=== PATIENT | female | born 1955 | race Caucasian/White ===

== ENCOUNTER 2024-02-11 02:30 | Inpatient (IN) | payer MEDICARE, OTHER, SELFPAY ==
[2024-02-11] VITALS (16 sets, daily range): BP systolic 153–181; BP diastolic 79–106; PULSE 74–111; RESP 15–22; TEMP 36.6–37.2; O2SAT 93–100; BMI 17.4
--- NOTE | 2024-02-11 02:44 | XR_ITS ---
Examination: PA chest single view Technique: Upright PA chest single view Exam date and time: February 11, 2024 0255 hrs. Indications: Onset chest pain today Findings: Mild prominence left ventricle Moderate hyperexpansion Linear scarring in the right upper lobe and right base as well as left base No lobar pneumonia or pulmonary edema Impression: No lobar pneumonia or pulmonary edema
--- NOTE | 2024-02-11 02:44 | EKG_ITS ---
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
--- NOTE | 2024-02-11 02:45 | PD.EDRME ---
Rapid Medical Screening Exam RME Arrival date/time: 02/11/24 02:30 68 year old female present to ED for c/o of chest pain. I have greeted and performed a focused initial assessment of this patient. A comprehensive ED assessment and evaluation of the patient, analysis of all test results, and completion of the medical decision making process will be conducted by additional ED providers. Chief Complaint: Chest Pain Time Seen by Provider: 02/11/24 02:41 Vital signs: Vital Signs Temperature 97.8 F 02/11/24 02:39 Pulse Rate 111 H 02/11/24 02:39 Respiratory Rate 18 02/11/24 02:39 Blood Pressure 181/99 H 02/11/24 02:39 Pulse Oximetry (%) 99 02/11/24 02:39 Oxygen Delivery Method Room Air 02/11/24 02:39
[2024-02-11] MEDS: ASPIRIN 81 MG CHEW 324 MG PO (03:04)
[2024-02-11 03:40] LABS: Basophils # (Auto) 0.1 Thou/mm3 (0.0-0.2); Basophils % (Auto) 1 % (0-2.5); Eosinophils # (Auto) 0.3 Thou/mm3 (0.0-0.5); Eosinophils % (Auto) 4 % (0-10); Hematocrit 40.5 % (36.0-46.0); Hemoglobin 13.2 g/dL (12.0-16.0); Immature Granulocytes % (Auto) 0 % (0-0); Immature Granulocytes Auto 0.01 Thou/mm3 (0.00-0.00); Lymphocytes % (Auto) 27 % (10-50); Mean Corpuscular HGB Conc 32.6 g/dl (31.0-37.0); Mean Corpuscular Hemoglobin 31.5 pg (25.0-35.0); Mean Corpuscular Volume 97 fL (80-100); Monocytes # (Auto) 0.8 Thou/mm3 (0.0-0.8); Monocytes % (Auto) 10 % (0-12); Neutrophils # (Auto) 4.3 Thou/mm3 (1.8-7.7); Neutrophils % (Auto) 58 % (37-80); Nucleated Red Blood Cell % 0 /100 WBC (0); Platelet Count 370 Thou/mm3 (140-440); RDW Standard Deviation 47.9 fL (36.4-46.3); Red Blood Count 4.19 Miln/mm3 (4.00-5.20); White Blood Count 7.5 Thou/mm3 (3.6-11.0)
[2024-02-11 03:50] LABS: Alanine Aminotransferase 36 U/L (10-49); Albumin, Serum 4.7 gm/dL (3.4-4.8); Albumin/Globulin Ratio 1.7 (1.2-2.2); Alkaline Phosphatase 143 U/L (46-116); Anion Gap 8 (7-16); Aspartate Amino Transferase 63 U/L (0-34); BUN/Creatinine Ratio 20 Ratio (12-20); Bilirubin,Total 0.4 mg/dL (0.3-1.2); Blood Urea Nitrogen 18 mg/dL (9-23); Calcium 9.6 mg/dL (8.3-10.6); Calcium (Corrected) 9.6 mg/dL (8.5-10.1); Carbon Dioxide 26.3 mMol/L (20.0-31.0); Chloride 107 mMol/L (98-107); Creatinine (Component) 0.9 mg/dL (0.6-1.3); Estimated Creatinine Clearance 44.4 mL/min (>60); Globulin 2.7 gm/dL (2.3-3.5); Glucose 101 mg/dL (74-106); Lipase 69 U/L (12-53); Osmolality,Calculated 283 (275-295); Potassium 3.9 mMol/L (3.4-5.1); Sodium 141 mMol/L (136-145); Total Protein 7.4 gm/dL (5.7-8.2); eGFR > 60 See Note
[2024-02-11 03:51] LABS: Troponin I 0.159 ng/mL (0.0-0.045)
[2024-02-11 06:29] LABS: Collection Type, Urine Clean Catch
--- NOTE | 2024-02-11 06:30 | PC.NURSE ---
At this time, pt denies of any chest pain. Pt states she did have chest pain earlier, started at 9PM last night. Discussed plan of care with pt. Pt verbalized understanding. Pt placed on disability specialist. Pt is alert/oriented x3. Respirations are even and unlabored. No s/s of acute distress noted. Call light within reach.
[2024-02-11 06:44] LABS: Troponin I 0.152 ng/mL (0.0-0.045)
[2024-02-11 07:12] LABS: Amphetamine/Methamp Scrn,U Negative (Negative); Barbiturate Screen,Urine Negative (Negative); Benzodiazepines Screen,Urine Negative (Negative); Benzoylecgonine Screen, Ur Negative (Negative); Fentanyl Screen,Urine Negative (Negative); Opiate Screen,Urine Negative (Negative); THC Screen,Urine Negative (Negative)
[2024-02-11 07:18] LABS: Bacteria,Urine Rare; Bilirubin,Urine Negative (Negative); Blood,Urine Trace (Negative); Color,Urine Lt-Yellow (Lt Yel-Yel); Glucose, Urine Negative (Negative); Ketones,Urine Negative (Negative); Leukocyte Esterase,Urine Positive (Negative); Nitrite,Urine Negative (Negative); Protein,Urine Negative (Neg - Trace); RBC,Urine 1 /hpf (0-3); Specific Gravity,Urine 1.008 (1.001-1.035); Squamous Epithelial Cell,Urine 1 /hpf (0-5); Urobilinogen,Urine Negative mg/dL (0.0-1.0); WBC,Urine 96 /hpf (0-5)
[2024-02-11 07:26] LABS: Clarity,Urine Hazy (Clear/Hazy)
--- NOTE | 2024-02-11 08:46 | PD.EDCHEST ---
ED Chest Pain RME/HPI General Chief Complaint: Chest Pain Stated Complaint: CHEST PAIN Time Seen by Provider: 02/11/24 02:41 Arrival date/time: 02/11/24 02:30 RME / HPI RME / HPI narrative: 02/11/24 02:30 68 year old female present to ED for c/o of chest pain. I have greeted and performed a focused initial assessment of this patient. A comprehensive ED assessment and evaluation of the patient, analysis of all test results, and completion of the medical decision making process will be conducted by additional ED providers. DR. SALGUERO MAIN ED EVALUATION: 68 year old female with past medical history significant for atrial fibrillation, hypertension, asthma presents to the Emergency Department with complaint of chest pain onset 1 AM. Pain is described as aching and rated 7/10. Patient denies any of the following: nausea, vomiting, diarrhea, dysuria, or any other symptoms at this time. Related Data Previous Rx's ?Medication ?Instructions ?Recorded ibuprofen 800 mg tablet 800 mg PO TID PRN pain #30 tabs 08/29/20 Allergies Allergy/AdvReac Type Severity Reaction Status Date / Time ampicillin Allergy Verified 08/29/20 18:43 azithromycin Allergy Verified 08/29/20 18:43 Penicillins Allergy Verified 08/29/20 18:43 Sulfa (Sulfonamide Allergy Verified 08/29/20 18:43 Antibiotics) Review of Systems Review of Systems Systems Reviewed: All systems reviewed, normal except as documented Narrative Review of Systems: GEN: No fever, no chills, no weight loss EYES: No discharge, no visual changes, no pain HEENT: No ear pain, no congestion, no sore throat PULM: No shortness of breath, no cough, no congestion CV: + chest pain, no dyspnea on exertion, no palpitations GI: No nausea, no vomiting, no diarrhea, no pain, no constipation : No frequency, no urgency and no dysuria MUSC/SKEL: No joint pain, no back pain SKIN: No rash PSYCH: No hallucinations, no depression HEME/LYMPH: No easy bleeding or bruising tendencies NEURO: No weakness, no headache Past Medical History Past Medical History CARDIAC: Positive Cardiac Disorders, Atrial Fibrillation and Hypertension; Negative Congestive Heart Failure RESPIRATORY: Positive Asthma; Negative Chronic Obstructive Pulmonary Disease (COPD) GENITOURINARY: Negative Renal Disease ENDOCRINE: Negative Diabetes Mellitus Type 1 or Diabetes Mellitus Type 2 Social History SMOKING STATUS: Never smoker SUBSTANCE USE: does not use ALCOHOL: Never ED Exam Narrative Physical exam: GENERAL APPEARANCE: Well hydrated, well nourished, in no acute distress. Anxious. VITALS: All vitals were reviewed and the pulse ox is 100% on room air which is normal according to my interpretation. HEENT: Normocephalic, atramatic, EOMI, EACs are patent. There is no bulge or retraction. Throat without erythema or exudate. Moist oromucosa. No jaundice NECK: Supple, no JVD or bruits. CARDIOVASCULAR: Heart regular without S3-S4 or murmur. No rubs or gallops. LUNGS/CHEST: Clear to auscultation bilaterally. No rales, rhonchi, or wheezing. Normal inspection. ABDOMEN: Soft, nontender, with normal bowel sounds. No pulsatile masses. No rebound, rigidity, or guarding. No incarcerated hernia. Normal inspection and palpation. EXTREMITIES: No edema, clubbing, or cyanosis. Intact CSM. Normal inspection and palpation. SKIN: Warm and dry without rashes. Normal inspection. MUSCULOSKELETAL: No gross deformity, full ROM all extremities. Normal inspection. NEURO: Alert and oriented x3. Cranial nerves II through XII grossly intact. There are no other motor or sensory deficits noted. PSYCHIATRIC: Normal mood and affect. No psychosis. Course Quality Measures none Orders Category Date Time Status Binder Chainstitch Q4H START 00 Care 02/11/24 08:57 Active EKG (ED ONLY) *Do not use* NOW Care 02/11/24 02:44 Completed Saline [Insert IV] NOW Care 02/11/24 08:57 Active EKG (ED Only) Stat Exams 02/11/24 02:44 Draft XR chest 1V portable Stat Exams 02/11/24 02:44 Completed CBC Stat Lab 02/11/24 03:05 Completed Comprehensive Metabolic Panel Stat Lab 02/11/24 03:05 Completed Drug Screen,Urine Stat Lab 02/11/24 06:13 Completed Lipase Stat Lab 02/11/24 03:05 Completed Magnesium Stat Lab 02/11/24 03:05 Completed Troponin I Stat Lab 02/11/24 03:05 Completed Troponin I Stat Lab 02/11/24 05:55 Completed Urinalysis Stat Lab 02/11/24 06:13 Completed Aspirin Chew Med 02/11/24 02:44 Discontinued 324 mg PO X1 ONE Nitroglycerin Oint 2% [Nitro-paste Oint 2%] Med 02/11/24 08:57 Discontinued 1 inch TOP X1 ONE Vital Signs Vital signs: Vital Signs Temperature 97.8 F 02/11/24 02:39 Pulse Rate 111 H 02/11/24 02:39 Respiratory Rate 18 02/11/24 02:39 Blood Pressure 181/99 H 02/11/24 02:39 Pulse Oximetry (%) 99 02/11/24 02:39 Oxygen Delivery Method Room Air 02/11/24 02:39 Chest Pain MDM Narrative MDM Narrative:: I, Jeny Dc, am scribing for and in the presence of Dr. Salguero. CBC is negative. CMP negative. Lipase is slightly elevated at 69. But patient has no symptoms for that. UA is negative. U tox negative. Magnesium negative. Troponin 0.159 repeated 0.152. Chest x-ray interpreted by me: Clear lungs. Heart normal. Mediastinum normal. Normal lungs. Normal bones. No pneumothorax. No CHF. In the emergency department, we are giving the patient aspirin and Nitropaste. 8:55 AM, I spoke to and discussed with , resident of Dr. Simons, hospitalist on-call. She agreed to assess the patient for admission. she wants me to contact the international editorial producer on-call 9 0 3 AM, I spoke to discussed with Dr. Stein, international editorial producer on-call. He agreed to consult on admission. Patient data External records reviewed:: [facility] previous records (Reviewed last ED visit dated 08/29/20, discharged with the following: Closed fracture of distal end of fibula with tibia.) Clinical information provided by:: patient Social determinants that could affect healthcare access:: none Patient has the following chronic illnesses:: Atrial fibrillation, hypertension, asthma How is presenting disease/condition affected by chronic disease/condition?: exacerbated by Evaluation data The following diagnostics were reviewed and interpreted by me:: lab results, radiology exam(s) and EKG tracing(s) Lab and/or radiology exams considered but not ordered:: none Interpretation Summary: See above under MDM narrative. RADIOLOGY Procedure(s): XR chest 1V portable Accession Number(s): [id number] cc: Noé Olmedo MD; Poncho Downing MD; Beni Salguero PA-C~ Examination: PA chest single view Technique: Upright PA chest single view Exam date and time: February 11, 2024 0255 hrs. Indications: Onset chest pain today Findings: Mild prominence left ventricle Moderate hyperexpansion Linear scarring in the right upper lobe and right base as well as left base No lobar pneumonia or pulmonary edema Impression: No lobar pneumonia or pulmonary edema Dictated By: Poncho Downing MD Medications / Prescriptions Medications or Prescriptions considered but not ordered:: none Medication administrations:: Medication Administration History Discontinued Medications Aspirin (Aspirin 81 Mg Chew) 324 mg PO X1 ONE Stop: 02/11/24 02:45 Last Admin: 02/11/24 03:04 Dose: 324 mg Documented By: OA Nitroglycerin (Nitroglycerin Oint 2% 1 Inch Packet) 1 inch TOP X1 ONE Stop: 02/11/24 08:58 see above Consultations Consultation(s) initiated? (list below): Yes Consultation #1 (Physician, Specialty, Details): Discussed test HPI, PMHx, lab, radiology results and/or management with hospitalist. Will admit for further evaluation and management. Accepts patient for admission. Time: 09:00 Diagnosis Most likely diagnosis given after review of the tests above:: Chest pain Elevated troponin Admission Indicated Admission indicated?: indicated Admission Request Was there a request for admission?: Yes Admission Attestation Admission request attestation: Discussed case with [] from Hospitalist service regarding admission. Discussed patients ED course, exam findings, labs, and radiology results. The Hospitalist [agrees,declines] to accept the patient for admission. Disposition Plan Disposition Plan: Admit Discharge Plan Plan Patient Disposition: Admit Acute Care w/in Hospital Disposition Comment: Stable for admit Prescriptions/Referrals Prescriptions/Med Rec: No Action ibuprofen 800 mg tablet 800 mg PO TID PRN (Reason: pain) Qty: 30 0RF Referrals: Noé Olmedo MD [Primary Care Provider] - In 1 week Problem List Clinical Impression: Chest pain, Elevated troponin Patient/Caregiver Discharge Instructions Print Language: Hebrew Stand Alone Forms: Malaika Award Info., Patient Portal Info Letter
[2024-02-11] MEDS: NITROGLYCERIN OINT 2% 1 INCH PACKET TOP (09:02)
--- NOTE | 2024-02-11 09:52 | ECHO_ITS ---
Transthoracic Echo Report Ht (in): 65 Wt (lb): 105 Exam Location: Portable Status: Inpatient Pediatric Registered Nurse: Josee Beck Indications: Procedure Performed: BP: 174 / 98 HR: 92 Rhythm: Sinus Technical Quality: Fair MEASUREMENTS (Male / Female) Normal Values 2D ECHO LV Diastolic Diameter PLAX 4.2 cm 4.2 - 5.9 / 3.9 - 5.3 cm LV Systolic Diameter PLAX 2.9 cm IVS Diastolic Thickness 0.8 cm 0.6 - 1.0 / 0.6 - 0.9 cm LVPW Diastolic Thickness 1.2 cm 0.6 - 1.0 / 0.6 - 0.9 cm LV Relative Wall Thickness 0.5 LVOT Diameter 2.0 cm LA Volume Index 22.7 cm?/m? 16 - 28 cm?/m? Ascending Aorta Diameter 3.2 cm M-MODE Aortic Root Diameter MM 2.7 cm LA Systolic Diameter MM 2.9 cm LA Ao Ratio MM 1.1 AV Cusp Separation MM 1.8 cm DOPPLER AV Peak Velocity 123.0 cm/s AV Peak Gradient 6.1 mmHg AV Mean Gradient 3.0 mmHg AV Velocity Time Integral 23.4 cm LVOT Peak Velocity 89.4 cm/s LVOT Peak Gradient 3.2 mmHg LVOT Velocity Time Integral 21.8 cm LVOT Cardiac Index 4294.9 cm?/min?m? AV Area Cont Eq vti 2.9 cm? AV Area Cont Eq pk 2.3 cm? MV Peak Velocity 90.4 cm/s MV Peak Gradient 3.3 mmHg MV Mean Velocity 54.6 cm/s MV Mean Gradient 1.0 mmHg MV Area PHT 4.2 cm? Mitral E Point Velocity 48.0 cm/s Mitral A Point Velocity 79.5 cm/s Mitral E to A Ratio 0.6 LV E' Lateral Velocity 6.0 cm/s Mitral E to LV E' Lateral Ratio 8.0 LV E' Septal Velocity 6.1 cm/s Mitral E to LV E' Septal Ratio 7.9 FINDINGS Left Ventricle Normal left ventricular size, wall thickness, systolic function with no obvious regional wall motion abnormalities. The ejection fraction is visually estimated at 55-60 %. Right Ventricle The right ventricle is normal in size and systolic function. Left Atrium The left atrium is normal by two-dimensional, color flow and Doppler imaging with no structural abnormalities, no thrombus formation present. Right Atrium The right atrium is normal by two-dimensional imaging, color flow and Doppler imaging with no struct ural abnormalities, no thrombus formation present. Atrial Septum The interatrial septum appears normal with no evidence of a shunt. Aorta The aorta is normal by two-dimensional, color flow and Doppler interrogation. Mitral Valve The mitral valve is normal by two-dimensional, color flow and Doppler interrogation. There is trace mitral valve regurgitation. Aortic Valve The aortic valve is trileaflet. Mild sclerosis without stenosis. There is no significant aortic valv e regurgitation. Tricuspid Valve The tricuspid valve is normal by two-dimensional, color flow and Doppler interrogation. There is tra ce tricuspid valve regurgitation. Pulmonic Valve There is no significant pulmonic valve regurgitation. Vessels The pulmonary artery appears normal. The inferior vena cava pulmonary and hepatic veins appear chuck l. Pericardium The pericardium is normal by two-dimensional imaging. There is no significant pericardial effusion. CONCLUSIONS Normal LV size and function. Estimated EF 55-60% Normal RV size and function Mild AV sclerosis without stenosis. Trace mitral and trace tricuspid regurgitation Tiana Rosario (Electronically Signed) Final Date: 13 February 2024 16:53
[2024-02-11] MEDS: ALBUTEROL INH 8 GM 2 PUFF INH ×3 (10:19→20:02)
[2024-02-11] MEDS: METOPROLOL SUCCINATE XL 25 MG TABCR 50 MG PO ×2 (10:28→20:22)
[2024-02-11 12:24] LABS: Partial Thromboplastin Time 27.9 Seconds (22.0-36.0)
[2024-02-11] MEDS: HEPARIN SOD INJ 5000 UNIT/ML VIAL 2900 UNIT IV (13:29)
[2024-02-11] MEDS: Heparin/D5w 25K 250 ML Ivpb 25,000 UNIT/250 ML BAG 5.715 UNIT IV (13:32)
--- NOTE | 2024-02-11 13:51 | PD.RESHP ---
Documentation for date of: 02/11/24 [facility] History of Present Illness History of present illness: This is a 68-year-old female with PMHx of hypertension, paroxysmal A-fib, CAD, and hypothyroidism presenting to the ED with acute chest pain and pressure that started overnight. Rates the pain a 7/10 in the middle of the chest, started suddenly around 1 AM prior to admission, nonradiating, without reported aggravating or mitigating factors. She [place] 5 [place] and hasn't been taking her METOPROLOL and home meds. She denies headaches, fevers, chills visual changes, loss of consciousness, shortness of breath, GI or urinary symptoms. ED COURSE: Afebrile, BP 181/91, HR 111, satting 99% on room air. Troponin 0.159. EKG showed sinus rhythm, nonspecific ST changes. BC and CMP otherwise normal. UA negative for UTI. CXR without pneumonia or pulmonary edema. Pain improved with NITROGLYCERIN in ED. Cardiology was consulted who recommended admission for ACS workup. PMHx: HTN, paroxysmal A-fib, CAD, hypothyroidism PSHx: None MEDS: ELIQUIS, METOPROLOL, LEVOTHYROXINE ALLERGIES: AMPICILLIN, AZITHROMYCIN, PENICILLIN, SULFA DRUGS SH: Denies alcohol, tobacco or drug use Exam Vital Signs Temp Pulse Resp BP Pulse Ox O2 Del Method 98.0 F 83 16 155/79 H 93 L Room Air 02/11/24 12:00 02/11/24 12:00 02/11/24 12:00 02/11/24 12:00 02/11/24 12:00 02/11/24 12:00 Narrative Exam GENERAL: Normal appearing elderly female without acute distress HEENT: NCAT.?[place]. Oral mucosa is moist. Patent Nares NECK: Supple, nontender, no thyromegaly, no meningismus, no JVD, no step offs CHEST: Symmetrical, atraumatic, and with equal expansion, Nontender on palpation no deformity and no crepitus. CARDIOVASCULAR: RRR, no m/g/r LUNGS: CTAB, no w/r/r. Symmetrical chest rise. No intercostal subcostal retraction. ABDOMEN: Soft, flat, nontender. No guarding/rebound tenderness/masses. +BS EXTREMITIES: Nontender.? No edema/cyanosis.?Moves all 4 extremities well, with full ROM and good CSM. SKIN: Warm and dry, no jaundice/rashes. MSK: No lumbar or midline, no CVA, no paraspinal muscle spasm or tenderness. NEURO: RUTLEDGE x4, CN II-XII grossly intact.?No focal neurologic deficits. PSYCHIATRIC: Normal mood and affect, cooperative, no SI or HI or hallucinations. Results: Labs 02/11/24 03:05 02/11/24 03:05 Labs: Short CBC 02/11/24 Range/Units 03:05 WBC 7.5 (3.6-11.0) Thou/mm3 Hgb 13.2 (12.0-16.0) g/dL Hct 40.5 (36.0-46.0) % Plt Count 370 (140-440) Thou/mm3 BMP 02/11/24 03:05 Sodium 141 Potassium 3.9 Chloride 107 Carbon Dioxide 26.3 BUN 18 Creatinine 0.9 Glucose 101 Calcium 9.6 Cardiac Enzymes 02/11/24 02/11/24 Range/Units 03:05 05:55 Troponin I 0.159 H* 0.152 H* (0.0-0.045) ng/mL Liver Function 02/11/24 Range/Units 03:05 Total Bilirubin 0.4 (0.3-1.2) mg/dL AST 63 H (0-34) U/L ALT 36 (10-49) U/L Alkaline Phosphatase 143 H (46-116) U/L Albumin 4.7 (3.4-4.8) gm/dL Urine 02/11/24 Range/Units 06:13 Urine Color Lt-Yellow (Lt Yel-Yel) Urine Clarity Hazy (Clear/Hazy) Urine pH 6.0 (5.0-7.0) Ur Specific [place] 1.008 (1.001-1.035) Urine Protein Negative (Neg - Trace) Urine Glucose (UA) Negative (Negative) Quality Measures Quality Measures none Advance care planning discussed with:: patient Medications Home Medications and Allergies Home Medications ?Medication ?Instructions ?Recorded ?Confirmed ?Type apixaban 2.5 mg tablet (Eliquis) mg PO BID 02/11/24 02/11/24 History levothyroxine 50 mcg tablet mcg PO QDAY 02/11/24 History metoprolol succinate 25 mg mg PO BID 02/11/24 History tablet,extended release 24 hr Allergies Allergy/AdvReac Type Severity Reaction Status Date / Time ampicillin Allergy Verified 08/29/20 18:43 azithromycin Allergy Verified 08/29/20 18:43 Penicillins Allergy Verified 08/29/20 18:43 Sulfa (Sulfonamide Allergy Verified 08/29/20 18:43 Antibiotics) Visit Medications Acetaminophen (Acetaminophen 325 Mg Tablet) 650 mg PO Q6H PRN PRN Reason: Fever >101.5 Stop: 03/12/24 09:50 Acetaminophen (Acetaminophen 325 Mg Tablet) 650 mg PO Q6H PRN PRN Reason: PAIN SCALE 1-3 (mild Stop: 03/12/24 09:50 Hydrocodone Bitart/Acetaminophen (Hydrocodone/Apap 5/325 Tablet) 1 tab PO Q8HR PRN PRN Reason: PAIN Stop: 02/16/24 09:54 Albuterol (Albuterol Inh 8 Gm) 2 puff INH Q4HR PRN PRN Reason: SHORTNESS OF BREATH OR WHEEZE Stop: 03/12/24 09:54 Last Admin: 02/11/24 10:19 Dose: 2 puff Aspirin (Aspirin Ec 81 Mg Tabec) 81 mg PO QDAY SABI Stop: 03/13/24 08:59 Atorvastatin Calcium (Atorvastatin Calcium 20 Mg Tablet) 80 mg PO HS [facility] Stop: 03/12/24 20:59 Heparin Sodium/Dextrose (Heparin In D5w Ivpb) 25,000 unit in 250 mls @ 5.715 mls/hr IV .Q24H SABI; Protocol Stop: 02/25/24 12:44 Last Admin: 02/11/24 13:32 Dose: 12 units/kg/hr, 5.715 mls/hr Levothyroxine Sodium (Levothyroxine Sodium 25 Mcg Tablet) 50 mcg PO ACBR SABI Stop: 03/13/24 05:59 Losartan Potassium (Losartan Potassium 25 Mg Tablet) 25 mg PO QDAY SABI Stop: 03/13/24 08:59 Metoprolol Succinate (Metoprolol Succinate Xl 25 Mg Tabcr) 50 mg PO BID SABI Stop: 03/12/24 20:59 Ondansetron HCl (Ondansetron Inj 2 Mg/Ml Inj 2 Ml) 4 mg IV Q6H PRN; Protocol PRN Reason: NAUSEA OR VOMITING Stop: 03/12/24 09:50 Discontinued Medications Aspirin (Aspirin 81 Mg Chew) 324 mg PO X1 ONE Stop: 02/11/24 02:45 Last Admin: 02/11/24 03:04 Dose: 324 mg Enoxaparin Sodium (Enoxaparin Sod Inj 40 Mg/0.4 Ml Syringe) 40 mg SC QDAY [facility] Stop: 02/26/24 08:59 Heparin Sodium (Porcine) (Heparin Sod Inj 5000 Unit/Ml Vial) 2,900 unit IV X1 ONE; Protocol Stop: 02/11/24 13:10 Last Admin: 02/11/24 13:29 Dose: 2,900 unit Metoprolol Succinate (Metoprolol Succinate Xl 25 Mg Tabcr) 50 mg PO QDAY [facility] Stop: 03/12/24 09:54 Last Admin: 02/11/24 10:28 Dose: 50 mg Nitroglycerin (Nitroglycerin Oint 2% 1 Inch Packet) 1 inch TOP X1 ONE Stop: 02/11/24 08:58 Last Admin: 02/11/24 09:02 Dose: 1 inch Assessment & Plan Plan In summary: 68-year-old female with HTN, paroxysmal A-fib, CAD, and hypothyroidism, presenting with acute chest pain, admitted for ACS workup. ? Acute coronary syndrome Acute non-STEMI Hx of CAD HTN Paroxysmal A-fib Presenting with acute chest pain that started 1 AM prior to admission. States chest pain is more like a chest pressure, relieved after NITROGLYCERIN in the ED. Possibly related to patient not taking her METOPROLOL for 5 days. Troponin elevated on admission. EKG shows sinus rhythm without acute ST changes. Cardiology was consulted who recommended admission to rule out ACS, and for possible cath. BP 1 6781, HR 81. Currently asymptomatic without chest pain or shortness of breath. ? Started HEPARIN drip ? Started ASPIRIN 81 mg daily ? Started ATORVASTATIN 80 mg daily ? Started on TOPROL 50 mg BID ? Started LOSARTAN 25 mg daily ? Maintain K greater than 4, mag greater than 2 ? Pain control ? Pending A1c, TSH, lipid panel ? Pending further recommendations from cardiology Hypothyroidism History of hypothyroidism. ? Resumed home LEVOTHYROXINE 50 mg AC BR ? Pending TSH Health maintenance Diet: Cardiac GI prophylaxis: PROTONIX DVT prophylaxis: HEPARIN Antibiotics: Not indicated CODE STATUS: Full code Disposition: Pending cardiology recommendation, possible cath Patient case was discussed with attending, Dr. Simons and senior resident Dr. Álvarez. Debi Sutton DO PGYI Attending Provider Attestation/Addendum I have examined the patient, reviewed labs and imaging findings, discussed the case with the resident(s), and reviewed entered orders. I agree with the plan of care as outlined in this note, with these additional summaries/recommendations: # NSTEMI type I Presented with chest pressure, duration greater than 2 minutes, and radiating up left arm. Given typical features this is concerning for NSTEMI type I from ACS or plaque rupture LISA score: 3 points indicating 13% risk at 14 days of all cause mortality Annabella score: 101 points indicating 4% probability of from admission to 6 months Troponin elevated to 0.159 EKG demonstrated sinus rhythm with nonspecific ST changes Workup: Troponin until downtrending, serial EKGs, TTE CAD risk factor screening: A1c, lipid panel, TSH, U tox Treatment: Titrate O2 as needed for symptoms Antiplatelet: Status post aspirin loading dose, continue aspirin 81 mg p.o. daily Anticoagulation: Heparin gtt. Plaque stabilization: Atorvastatin 80 mg p.o. at bedtime Cardiac remodeling prevention: Continue home metoprolol succinate XL 50 mg p.o. twice daily and losartan 25 mg p.o. daily Consider IV morphine or nitroglycerin as needed for chest pain Cardiology following with plans for cardiac catheterization either Saturday 02/11 or Sunday 02/12 # Chronic atrial fibrillation Continue home metoprolol Currently rate controlled Hold home Eliquis in anticipation of cardiac catheterization # Hypothyroidism Continue levothyroxine [address] Simons
--- NOTE | 2024-02-11 14:09 | ESCONSULT_ITS ---
RE: AISHWARYA ARAIZA : 1955 DATE OF CONSULTATION: 02/11/2024 CONSULTING PHYSICIAN: Misha Simons MD REASON FOR CONSULTATION: Evaluation of chest pain, acute myocardial infarction, NSTEMI and acute coronary syndrome. CHIEF COMPLAINT: Chest pressure. HISTORY OF PRESENT ILLNESS: The patient is a 68-year-old pleasant lady with a past medical history of hypertension, paroxysmal atrial fibrillation on metoprolol and Eliquis as well as blood pressure medications, doing well until recently. The patient normally lives in [place], [place], followed by Dr. Mack, information technology coordinator and Dr. Zamorano, rating specialist, has a cabin in [place]. She went to [place] about 4 days ago and forgot her medication. She has not been taking her medication for the last 3 days. This morning around 1 a.m. she woke up with severe substantial chest heaviness like someone sitting on her chest. It lasted for several hours. She came to the emergency room after given nitroglycerin and Nitropaste, pain slowly went away. She is feeling better. EKG showed normal sinus rhythm, nonspecific ST abnormality. Cardiac enzymes, troponin at 0.152. The patient was admitted to the hospital and was diagnosed with acute coronary syndrome and non-ST segment elevation myocardial infarction. The patient remains in sinus rhythm, tachycardia 94 beats per minute. ALLERGIES: NONE. MEDICATIONS: Medications at home. She did not bring her medication, but she is apparently on metoprolol 50 mg twice daily and also on blood pressure medication, possibly lisinopril and losartan, levothyroxine and Eliquis 5 mg b.i.d. PAST MEDICAL HISTORY: Hypertension, hypothyroidism, paroxysmal atrial fibrillation. SOCIAL HISTORY: , lives with . Does not smoke or drink alcoholic beverages. FAMILY HISTORY: Father had a heart attack and 3 siblings have had a cardiovascular problem and CAD. REVIEW OF SYSTEMS: CARDIOVASCULAR: Chest heaviness, mild shortness of breath. GASTROINTESTINAL: No nausea or vomiting. GENITOURINARY: No frequency or dysuria. PHYSICAL EXAMINATION: GENERAL: Pleasant lady, alert, awake, in no acute distress. VITAL SIGNS: Blood pressure 159/92, pulse 98, respirations 16, temperature normal. HEENT: Head is atraumatic and normocephalic. Eyes normal. ENT normal. NECK: Supple. No JVD, carotid pulse felt but no bruits. CHEST: Symmetrical. LUNGS: Clear. HEART: S1, S2 regular. No gallops. ABDOMEN: Thin and soft. EXTREMITIES: No edema. GENITOURINARY AND RECTAL: Not performed. NEUROLOGIC: Peripheral pulses 3+ bilaterally. COATING TECHNICIAN: Alert and oriented x3. No focal deficits. DIAGNOSTIC DATA: Electrocardiogram showed normal sinus rhythm and nonspecific ST changes. ASSESSMENT: 1. Acute coronary syndrome, acute non-ST segment elevation myocardial infarction, troponin elevation. 2. Hypertension. 3. Paroxysmal atrial fibrillation. 4. Hypothyroidism. RECOMMENDATIONS: I would recommend aspirin and heparin for now and possibly require coronary angiogram and cardiac catheterization. We will get a cardiac echo Doppler study as well tomorrow and schedule for angiogram either tomorrow afternoon if possible or Monday. Thanks for referring this patient for cardiovascular evaluation. We will be glad to follow the patient with you. DT: 11:12:42 TT: 14:07:00 Ref: [id number] - TID: [id number]
[2024-02-11] MEDS: HYDROcodone/APAP 5/325 TABLET 1 TAB PO (16:13)
--- NOTE | 2024-02-11 17:56 | PC.NURSE ---
pt unable to provide home medication list at this time, to come here tomorrow and bring list
[2024-02-11 20:17] LABS: Partial Thromboplastin Time 30.3 Seconds (22.0-36.0)
[2024-02-11] MEDS: ATORVASTATIN CALCIUM 20 MG TABLET 80 MG PO (20:22)
[2024-02-11] MEDS: HEPARIN SOD INJ 5000 UNIT/ML VIAL 2900 UNIT IVP (20:46)
[2024-02-11] MEDS: ACETAMINOPHEN 325 MG TABLET 650 MG PO (23:23)
[2024-02-12] VITALS (20 sets, daily range): BP systolic 122–192; BP diastolic 59–100; PULSE 73–92; RESP 13–20; TEMP 36.1–37.3; O2SAT 93–97; BMI 17.4
[2024-02-12] MEDS: ALBUTEROL INH 8 GM 2 PUFF INH ×2 (00:09→13:16)
--- NOTE | 2024-02-12 00:32 | PC.NURSE ---
Dr. Hope notified of patient requesting pain medication for headache and made aware that Tylenol given and helped a little but patient requesting something else.
[2024-02-12 03:27] LABS: Basophils # (Auto) 0.1 Thou/mm3 (0.0-0.2); Basophils % (Auto) 2 % (0-2.5); Eosinophils # (Auto) 0.4 Thou/mm3 (0.0-0.5); Eosinophils % (Auto) 5 % (0-10); Hematocrit 35.6 % (36.0-46.0); Hemoglobin 11.5 g/dL (12.0-16.0); Immature Granulocytes % (Auto) 0 % (0-0); Immature Granulocytes Auto 0.02 Thou/mm3 (0.00-0.00); Lymphocytes # (Auto) 2.7 Thou/mm3 (1.0-4.8); Lymphocytes % (Auto) 37 % (10-50); Mean Corpuscular HGB Conc 32.3 g/dl (31.0-37.0); Mean Corpuscular Hemoglobin 31.2 pg (25.0-35.0); Mean Corpuscular Volume 97 fL (80-100); Monocytes # (Auto) 0.6 Thou/mm3 (0.0-0.8); Monocytes % (Auto) 9 % (0-12); Neutrophils # (Auto) 3.4 Thou/mm3 (1.8-7.7); Neutrophils % (Auto) 47 % (37-80); Nucleated Red Blood Cell % 0 /100 WBC (0); Platelet Count 317 Thou/mm3 (140-440); RDW Standard Deviation 46.7 fL (36.4-46.3); Red Blood Count 3.69 Miln/mm3 (4.00-5.20); White Blood Count 7.2 Thou/mm3 (3.6-11.0)
[2024-02-12 03:52] LABS: Alanine Aminotransferase 22 U/L (10-49); Albumin, Serum 3.6 gm/dL (3.4-4.8); Albumin/Globulin Ratio 1.4 (1.2-2.2); Alkaline Phosphatase 97 U/L (46-116); Anion Gap 8 (7-16); Aspartate Amino Transferase 25 U/L (0-34); BUN/Creatinine Ratio 18 Ratio (12-20); Bilirubin,Total 0.6 mg/dL (0.3-1.2); Blood Urea Nitrogen 16 mg/dL (9-23); Calcium 9.3 mg/dL (8.3-10.6); Calcium (Corrected) 9.6 mg/dL (8.5-10.1); Carbon Dioxide 25.4 mMol/L (20.0-31.0); Cardiac Risk Estimate 1.8 RATIO (3.7-5.6); Chloride 109 mMol/L (98-107); Cholesterol 144 mg/dL (132-200); Creatinine (Component) 0.9 mg/dL (0.6-1.3); Estimated Creatinine Clearance 44.4 mL/min (>60); Globulin 2.5 gm/dL (2.3-3.5); Glucose 104 mg/dL (74-106); HDL Cholesterol 81 mg/dL (40-60); LDL Cholesterol,Calculated 51 mg/dL (0-130); Osmolality,Calculated 284 (275-295); Phosphorous 5.4 mg/dL (2.4-5.1); Potassium 4.1 mMol/L (3.4-5.1); Sodium 142 mMol/L (136-145); Thyroid Stimulating Hormone 3.63 uIU/mL (0.55-4.78); Total Protein 6.1 gm/dL (5.7-8.2); Triglycerides 61 mg/dL (30-150); eGFR > 60 See Note
[2024-02-12 03:56] LABS: Partial Thromboplastin Time 68.7 Seconds (22.0-36.0)
[2024-02-12 04:04] LABS: Glucose Estimated Average 100 mg/dL (80-131); Hemoglobin A1C 5.1 % Hgb (4.8-6.0)
[2024-02-12] MEDS: ACETAMINOPHEN 325 MG TABLET 650 MG PO (04:09)
--- NOTE | 2024-02-12 04:32 | PC.NURSE ---
Dr. Hope notified regarding patient's elevated blood pressure. New orders received.
[2024-02-12] MEDS: LOSARTAN POTASSIUM 25 MG TABLET (05:06)
[2024-02-12] MEDS: LEVOTHYROXINE SODIUM 25 MCG TABLET 50 MCG PO (05:06)
[2024-02-12] MEDS: ASPIRIN EC 81 MG TABEC PO (09:27)
[2024-02-12] MEDS: METOPROLOL SUCCINATE XL 25 MG TABCR 50 MG PO ×2 (09:27→18:45)
--- NOTE | 2024-02-12 10:37 | PC.SS ---
Patient is alert/oriented. Patient resides at home with spouse. She is here visiting. Patient was at their cabin in [place]. D/c plan is to return home in [place]. Patient was admitted for chest pain. Baseline is independent with ADL's. She uses a cane as needed. She has a fractured back that she recently had surgery in of last year. Spouse provides transportation assistance. Patient follows with GI and Cardiology for o/p treatment. Patient pending cardiac cath. Her p.c.p. is Dr. Olmedo in [place]. Last appt. was in January. Patient states her is her alt medical decision maker.
[2024-02-12 11:37] LABS: Partial Thromboplastin Time 57.2 Seconds (22.0-36.0)
[2024-02-12] MEDS: amLODIPine BESYLATE 5 MG TABLET PO (12:12)
[2024-02-12] MEDS: Heparin/D5w 25K 250 ML Ivpb 25,000 UNIT/250 ML BAG 7.62 UNIT IV (12:29)
--- NOTE | 2024-02-12 13:16 | PC.NURSE ---
stopped heparin iv per order
[2024-02-12] MEDS: SODIUM CHLORIDE 0.45 % 500 ML 100 ML IV (14:00)
[2024-02-12 14:56] LABS: INR 1.1 (0.9-1.3); Prothrombin Time 11.8 Seconds (9.0-12.2)
--- NOTE | 2024-02-12 14:56 | ESPR_ITS ---
<Statement entered by Fredi Álvarez MD - 02/12/24 19:18> Patient underwent cath by Dr. Mcintosh, found to have clean coronaries and patient was discharged later on the same day. I discussed with and supervised my co-resident involved in the care of this patient. I agree with the assessment and plan as documented above. Fredi Álvarez,PGY-3 Disclaimer: Despite multiple revisions, due to the dictation software being used, the document below may not be free of grammatical errors including phonetic/typographic errors. However, this does not deter from our commitment to providing health care in the patient's best interest in mind. Documentation for date of: 02/12/24 Subjective Subjective Interval history: No acute overnight events. Patient appears comfortable. She was n.p.o. for possible cath today. Denies fever, chills, headaches, chest pain, sob, cough, GI or urinary symptoms. Exam Vital Signs Temp Pulse Resp BP Pulse Ox O2 Del Method 97.4 F 87 20 192/94 H 97 Room Air 02/12/24 13:47 02/12/24 13:47 02/12/24 13:47 02/12/24 13:47 02/12/24 13:47 02/12/24 13:47 Narrative Exam GENERAL: Normal appearing elderly female without acute distress HEENT: NCAT.?YOJANA. Oral mucosa is moist. Patent Nares NECK: Supple, nontender, no thyromegaly, no meningismus, no JVD, no step offs CHEST: Symmetrical, atraumatic, and with equal expansion, Nontender on palpation no deformity and no crepitus. CARDIOVASCULAR: RRR, no m/g/r LUNGS: CTAB, no w/r/r. Symmetrical chest rise. No intercostal subcostal retraction. ABDOMEN: Soft, flat, nontender. No guarding/rebound tenderness/masses. +BS EXTREMITIES: Nontender.? No edema/cyanosis.?Moves all 4 extremities well, with full ROM and good CSM. SKIN: Warm and dry, no jaundice/rashes. MSK: No lumbar or midline, no CVA, no paraspinal muscle spasm or tenderness. NEURO: RUTLEDGE x4, CN II-XII grossly intact.?No focal neurologic deficits. PSYCHIATRIC: Normal mood and affect, cooperative, no SI or HI or hallucinations. Objective Labs 02/12/24 03:03 02/12/24 03:03 Labs: Laboratory Results - last 24 hr 02/11/24 02/12/24 02/12/24 19:42 03:03 10:51 WBC 7.2 RBC 3.69 L Hgb 11.5 L Hct 35.6 L MCV 97 MCH 31.2 MCHC 32.3 RDW Std Deviation 46.7 H Plt Count 317 D Neut % (Auto) 47 Lymph % (Auto) 37 [place] % (Auto) 9 Eos % (Auto) 5 Baso % (Auto) 2 Neut # (Auto) 3.4 Lymph # (Auto) 2.7 [place] # (Auto) 0.6 Eos # (Auto) 0.4 Baso # (Auto) 0.1 Immature Gran # (Auto) 0.02 H Absolute Nucleated RBC 0.00 Immature Gran % 0 Nucleated RBC % 0 PT 11.8 INR 1.1 APTT 30.3 68.7 H D 57.2 H D Sodium 142 Potassium 4.1 Chloride 109 H Carbon Dioxide 25.4 Anion Gap 8 BUN 16 Creatinine 0.9 Estim Creat Clear Calc 44.4 L eGFR > 60 BUN/Creatinine Ratio [address] Glu mg/dL 100 Hemoglobin A1c 5.1 Calculated Osmolality 284 Calcium 9.3 Corrected Calcium 9.6 Phosphorus 5.4 H Magnesium 2.0 Total Bilirubin 0.6 AST 25 ALT 22 Alkaline Phosphatase 97 D Total Protein 6.1 Albumin 3.6 D Globulin 2.5 Albumin/Globulin Ratio 1.4 Triglycerides 61 Cholesterol 144 LDL Cholesterol, Calc 51 HDL Cholesterol 81 H Cholesterol/HDL Ratio 1.8 L TSH 3.63 Quality Measures Quality Measures none Advance care planning discussed with:: patient Assessment & Plan Assessment Current Active Medications: Generic Name Dose Route Start Last Admin Trade Name Freq PRN Reason Stop Dose Admin Acetaminophen 650 mg 02/11/24 09:51 Acetaminophen 325 Mg Tablet PO 03/12/24 09:50 Q6H PRN Fever >101.5 Acetaminophen 650 mg 02/11/24 09:51 02/12/24 04:09 Acetaminophen 325 Mg Tablet PO 03/12/24 09:50 650 mg Q6H PRN Administration PAIN SCALE 1-3 (mild Hydrocodone Bitart/Acetaminophen 1 tab 02/11/24 09:55 02/11/24 16:13 Hydrocodone/Apap 5/325 Tablet PO 02/16/24 09:54 1 tab Q8HR PRN Administration PAIN Protocol Albuterol 2 puff 02/11/24 09:55 02/12/24 13:16 Albuterol Inh 8 Gm INH 03/12/24 09:54 2 puff Q4HR PRN Administration SHORTNESS OF BREATH OR WHEEZE Amlodipine Besylate 5 mg 02/12/24 10:45 02/12/24 12:12 Amlodipine Besylate 5 Mg Tablet PO 03/13/24 10:44 5 mg QDAY SABI Administration Aspirin 81 mg 02/12/24 09:00 02/12/24 09:27 Aspirin Ec 81 Mg Tabec PO 03/13/24 08:59 81 mg QDAY SABI Administration Atorvastatin Calcium 80 mg 02/11/24 21:00 02/11/24 20:22 Atorvastatin Calcium 20 Mg Tablet PO 03/12/24 20:59 80 mg HS SABI Administration Sodium Chloride 500 mls @ 100 mls/hr 02/12/24 13:15 02/12/24 14:00 Ns 0.45% IV 03/13/24 13:14 100 mls/hr .Q5H SABI Administration Levothyroxine Sodium 50 mcg 02/12/24 06:00 02/12/24 05:06 Levothyroxine Sodium 25 Mcg Tablet PO 03/13/24 05:59 50 mcg ACBR SABI Administration Losartan Potassium 25 mg 02/12/24 09:00 02/12/24 09:18 Losartan Potassium 25 Mg Tablet PO 03/13/24 08:59 Not Given QDAY SABI Metoprolol Succinate 50 mg 02/11/24 21:00 02/12/24 09:27 Metoprolol Succinate Xl 25 Mg Tabcr PO 03/12/24 20:59 50 mg BID SABI Administration Ondansetron HCl 4 mg 02/11/24 09:51 Ondansetron Inj 2 Mg/Ml Inj 2 Ml IV 03/12/24 09:50 Q6H PRN NAUSEA OR VOMITING Protocol Plan In summary: 68-year-old female with HTN, paroxysmal A-fib, CAD, and hypothyroidism, presenting with acute chest pain, admitted for ACS workup. ? Acute coronary syndrome Acute non-STEMI Hx of CAD HTN Paroxysmal A-fib Presenting with acute chest pain that started 1 AM prior to admission. States chest pain is more like a chest pressure, relieved after NITROGLYCERIN in the ED. Possibly related to patient not taking her METOPROLOL for 5 days. Troponin elevated on admission. EKG shows sinus rhythm without acute ST changes. Cardiology was consulted who recommended admission to rule out ACS, and for possible cath. BP 1 6781, HR 81. Currently asymptomatic without chest pain or shortness of breath. Cardiology following. Recommendations as below. ? Continue HEPARIN drip ? Continue ASPIRIN 81 mg daily ? Continue ATORVASTATIN 80 mg daily ? Continue METOPROLOL 50 mg BID ? Holding LOSARTAN 25 mg daily for possible cath today ? Maintain K greater than 4, mag greater than 2 ? Pain control ? Pending A1c, TSH, lipid panel ? Pending further recommendations from cardiology ? Possible cath with cardiology today Hypothyroidism History of hypothyroidism. ? Resumed home LEVOTHYROXINE 50 mg AC BR ? Pending TSH Health maintenance Diet: Cardiac GI prophylaxis: PROTONIX DVT prophylaxis: HEPARIN Antibiotics: Not indicated CODE STATUS: Full code Disposition: Pending cardiology recommendation, possible cath Patient case was discussed with attending, Ramez Barcenas MD and senior residents Dr. Álvarez and Dr. Joyner. Debi Sutton DO PGYI Attending Provider Attestation/Addendum I reviewed labs, imaging, EKG, home medications and prior available records. Face to face evaluation was performed by me. I have personally examined the patient and discussed assessment and plan with the IM team. I reviewed the resident note and agree with the plan with exceptions as below. Non-STEMI Nonobstructive CAD Atrial fibrillation with controlled ventricular rhythm Hypothyroidism Uncontrolled hypertension Status post cardiac catheterization that showed nonobstructive CAD. Continue aspirin. Follow-up with cardiology as outpatient Amlodipine and losartan in addition to metoprolol for the HTN Continue home levothyroxine Continue metoprolol and Eliquis for the A-fib Time spent is 40 minutes. More than 50% of the time was spent on patient education and coordination of care.
--- NOTE | 2024-02-12 16:51 | PC.NURSE ---
Report given to LISA Tripp. Dressing clean, dry, and intact. Right wrist is soft, flat, and nontender. No signs of bleeding or hematoma.
--- NOTE | 2024-02-12 17:01 | ESDS_ITS ---
<Statement entered by Fredi Álvarez MD - 02/12/24 19:09> I discussed with and supervised my co-resident involved in the care of this patient. I agree with the assessment and plan as documented above. Fredi Álvarez,PGY-3 Disclaimer: Despite multiple revisions, due to the dictation software being used, the document below may not be free of grammatical errors including phonetic/typographic errors. However, this does not deter from our commitment to providing health care in the patient's best interest in mind. Planned Discharge Date 02/12/24 DS: Providers Provider Date of admission: 02/11/24 09:51 Primary care physician: Noé Olmedo MD Admitting Provider: Misha Simons MD Attending Provider on Admission: Misha Simons MD Consults: 02/11/24 14:54 Consult to Cardiology Routine Comment: Consulting Provider: Lesly Mcintosh 02/11/24 16:13 Referral [place] Routine Comment: Referral Registered Dietitian Routine Comment: Attending Provider on DC: Ramez Barcenas MD Discharging Provider: Ramez Barcenas MD DS: Diagnosis Problem List Completed Was Problem List Reviewed/Reconciled?: Yes Hospital Course Hospital Course Hospital course: This is a 68-year-old female PMHx of HTN, proximal A-fib, CAD, and hypothyroidism who presented with acute chest pain, after she stopped taking her home medications for 5 days. She was admitted for acute coronary syndrome, and non-STEMI. He underwent Ladle Operator with cardiology which showed all arteries are clear without signs of stenosis.. No cardiac interventions were done at this time. Cardiology recommended discharge home and resume home medications and outpatient follow-up. PATIENT INSTRUCTIONS: Follow-up with PCP within 1-2 weeks of discharge. Follow-up with cardiology within 1 week of discharge. Return to Emergency Room if symptoms persist, worsen, or new symptoms develop. Continue taking medications as prescribed below: ? ASPIRIN 81 mg daily - Amlodipine 5 mg ? METOPROLOL 25 mg BID ? LOSARTAN 25 mg daily ? LEVOTHYROXINE 50 mg daily Admission diagnoses Acute coronary syndrome r/o Acute non-STEMI Hx of CAD HTN Paroxysmal A-fib Hypothyroidism Patient case was discussed with attending, Ramez Barcenas MD and senior residents Dr. Álvarez and Dr. Joyner. Debi Sutton, PGYI Time Spent with Patient Time attestation: Total time spent providing and/or coordinating discharge services: Greater than 35 minutes. Exam Vital Signs Temp Pulse Resp BP Pulse Ox O2 Del Method 98.4 F 83 16 164/83 H 96 Room Air 02/12/24 14:51 02/12/24 16:22 02/12/24 16:22 02/12/24 16:22 02/12/24 16:22 02/12/24 16:22 Narrative Exam GENERAL: Normal appearing elderly female without acute distress HEENT: NCAT.?YOJANA. Oral mucosa is moist. Patent Nares NECK: Supple, nontender, no thyromegaly, no meningismus, no JVD, no step offs CHEST: Symmetrical, atraumatic, and with equal expansion, Nontender on palpation no deformity and no crepitus. CARDIOVASCULAR: RRR, no m/g/r LUNGS: CTAB, no w/r/r. Symmetrical chest rise. No intercostal subcostal retraction. ABDOMEN: Soft, flat, nontender. No guarding/rebound tenderness/masses. +BS EXTREMITIES: Nontender.? No edema/cyanosis.?Moves all 4 extremities well, with full ROM and good CSM. SKIN: Warm and dry, no jaundice/rashes. MSK: No lumbar or midline, no CVA, no paraspinal muscle spasm or tenderness. NEURO: RUTLEDGE x4, CN II-XII grossly intact.?No focal neurologic deficits. PSYCHIATRIC: Normal mood and affect, cooperative, no SI or HI or hallucinations. Discharge Plan Plan Patient Disposition: HOME (Self Care) Disposition Comment: Home with family members Care Plan Goals: Please follow-up with your PCP within 1 week of discharge. Please follow-up with your door opener Dr. Mack at [facility] within 1 week of discharge. You have been started on aspirin 81 Mg daily -You have been started on amlodipine 5 mg daily and losartan 25 mg daily. Please monitor your blood pressure daily, and if your systolic blood pressure is less than 120 or diastolic blood pressure is less than 80, please hold this medicine. -Continue taking all other medicines as prescribed -Recommended to return back to emergency department if your symptoms persist or does not improve. Prescriptions/Referrals Prescriptions/Med Rec: New aspirin 81 mg Tablet,Delayed Release (Dr/Ec) 81 mg PO QDAY Qty: 30 0RF amlodipine 5 mg Tablet 5 mg PO QDAY 30 Days Qty: 30 0RF losartan 25 mg Tablet 25 mg PO QDAY 30 Days Qty: 30 0RF Continued levothyroxine 50 mcg tablet PO QDAY metoprolol succinate 25 mg tablet extended release 24 hr 25 mg PO BID Patient Comments: TAKE 2 TABLETS BY MOUTH TWICE A DAY Eliquis 2.5 mg Tablet 5 mg PO BID Referrals: Noé Olmedo MD [Primary Care Provider] - Patient/Caregiver Discharge Instructions Other Discharge Activity Instructions:: Please follow-up with your PCP within 1 week of discharge. Please follow-up with your door opener Dr. Mack at [facility] within 1 week of discharge. You have been started on aspirin 81 Mg daily -You have been started on amlodipine 5 mg daily and losartan 25 mg daily. Please monitor your blood pressure daily, and if your systolic blood pressure is less than 120 or diastolic blood pressure is less than 80, please hold this medicine. -Continue taking all other medicines as prescribed -Recommended to return back to emergency department if your symptoms persist or does not improve. Education Materials: Having Cardiac Catheterization, Cardiac Catheterization Dc, Preventing Surgical Site Infections, Eating Heart-Healthy Foods, Procedural Sedation, Cardiac Cath Transradial, [facility] Instructions- Welsh Print Language: Welsh Activity Restrictions/Additional Instructions: Please call to Schedule a follow up appointment with Dr. Mcintosh, (Commercial Reporter), to be seen in his office within one week upon discharge Address: [facility] [place] [address]. Please call to schedule a follow up appointment with your primary care doctor 1- 2 weeks after discharge so he/she can make further recommendations about your overall health condition. DO NOT drive or operate any motor vehicle, heavy equipment, or machinery in the next 24 hours. DO NOT perform any activity that requires you to be fully alert in the next 24 hour. DO NOT sign any documentation in the next 24 hours that requires a full understanding of what you are signing for. Do not perform any strenuous physical activity in the next 5 days. Do not bend or twist your wrist for the next 3 days. Do no lift anything that weights equal or over 5 pounds with your right Arm/Hand within the next 3 days. Perform light activity only with your right Hand/Arm for the next 3 days. Do not strain your bowel. If you experience constipation, drink plenty of fluids, especially water, if not contraindicated by your doctor. In addition, add foods rich in fiber. Should you experience constipation, talk to your doctor about other options that might help you alleviate it. Keep your blood pressure under control. If you take blood pressure medication, continue to take it if not contraindicated by your doctor. Doing so, helps to prevent post-complications such as bleeding. Take your new/previous medication as directed by the doctor. If there is no changes, continue to take medication at your usual time. After 3 days, start increasing the level of physical activity with your Hand/Arm gradually in the following 5 days. Look out for signs of infection such as tenderness, redness, or drainage to your right wrist. If any, report them to your primary care doctor immediately. You will go home with your right wrist covered by two different dressings, a clear dressing and a Coban wrap. The Coban wrap (Color Dressing on Top) must be removed in 24 hours after it was placed. The clear dressing (Dressing that is attached to your skin) Must be removed in 48 hours after it was placed. If you decide to shower or to take a bath, NOT RECOMMENDED IN THE FIRST 24 HOURS AFTER THE PROCEDURE; please keep dressing clean and dry by covering it. Or, if you prefer, take a sponge bath instead. After removing your dressing, you can gently clean your surgical site with soap and water and pad dry it. DO NOT rub site to prevent complication such as bleeding. DO NOT apply any lotions, creams, or powders on the surgical site until your skin completely heals (5 days or more). Should you experience any type of complications such as pain, change in color, change in temperature, a bruise that increases in size and color, a lump (Hard or soft) that develops and increases in size, numbness, or loss of sensation in your Right arm/Wrist, Chest pain, or shortness of breath; PLEASE GO TO THE NEAREST EMERGENCY ROOM IMMEDIATELY. Should you have any other questions or concerns on regards today?s procedure; feel free to contact us to Ladle Operator . Stand Alone Forms: Malaika Award Info., Patient Portal Info Letter Discharge Order Discharge Orders: Discharge (Routine); Ordered 02/12/24 Ordered By: Fredi Álvarez Quality Discharge Quality Measures VTE prophylaxis Attestestation Attestation I reviewed labs, imaging, EKG, home medications and prior available records. Face to face evaluation was performed by me. I have personally examined the patient and discussed assessment and plan with the IM team. I reviewed the resident note and agree with the plan with exceptions as below. Non-STEMI Nonobstructive CAD Atrial fibrillation with controlled ventricular rhythm Hypothyroidism Uncontrolled hypertension Status post cardiac catheterization that showed nonobstructive CAD. Continue aspirin. Follow-up with cardiology as outpatient Amlodipine and losartan in addition to metoprolol for the HTN Continue home levothyroxine Continue metoprolol and Eliquis for the A-fib Time spent is 40 minutes. More than 50% of the time was spent on patient education and coordination of care.
--- NOTE | 2024-02-12 17:37 | PC.NURSE ---
aware pt unable to provide current medication list, was supposed to bring it and has not as of yet
--- NOTE | 2024-02-12 18:07 | PC.NURSE ---
called on pt bp of 181/102 hr 80, md to place orders
--- NOTE | 2024-02-12 18:20 | PC.NURSE ---
called dr. johnson, recheck bp prior to labetalol administration was 130/102 hr 84. stated to hold labetalol and recheck bp in 5 min, pt and updated
--- NOTE | 2024-02-12 18:34 | PC.NURSE ---
called dr. johnson another bp was taken initially bp was 130/104, retook and bp was 164/92 hr 86. stated he will place another order for labetalol and bp needs to be taken after 15 min
--- NOTE | 2024-02-12 18:46 | PC.NURSE ---
spoke to dr. kurt md stated not to give labetalol and to give her metaprolol that is ordered now and discharge
[2024-02-12 19:22] LABS: Partial Thromboplastin Time 29.1 Seconds (22.0-36.0)
--- NOTE | 2024-02-13 09:12 | ESOP_ITS ---
RE: AISHWARYA ARAIZA : 1955 DATE OF OPERATION: 02/12/2024 PROCEDURE PERFORMED: 1. Diagnostic left heart cardiac catheterization, selective coronary angiogram and left ventricular angiogram, CPT 60930. 2. Conscious sedation for 30 minute duration. 3. Ultrasound-guided access of right radial artery. 4. TR band application. DIAGNOSES: Coronary artery disease, acute non-ST segment elevation myocardial infarction, and chest pain. HISTORY AND INDICATIONS: The patient is a 68-year-old female with a history of paroxysmal AFib, hypertension came to the hospital because of severe thrusting chest pain like elephant sitting on her chest. Troponin level was mildly elevated. Because of persistent chest tightness and classic angina with elevated troponin levels, cardiac catheterization and coronary angiogram was recommended to assess the patient is a candidate for MEDICAL PHYSICS PROFESSOR intervention. DESCRIPTION OF PROCEDURE: The patient was brought to cardiac catheterization laboratory. She was given 1 mg of Versed and 50 mcg of fentanyl for conscious sedation. Right radial approach was taken. Right radial artery was cannulated with micropuncture technique, a 6-[place] Glidesheath was reduced. Selective right and left coronary angiogram performed by TIG-4, 5-Occitan diagnostic catheter. The patient tolerated the procedure very well. No complications. TR band was applied. Hemostasis was secured. Coronary angiogram showed following findings. Right coronary large and dominant, gives off PDA and PL branches. No significant stenosis seen. Left coronary system: Left main coronary artery is normal. Left anterior descending artery showed mild atherosclerotic plaque in the proximal segment. No significant stenosis. Septal diagonal branch is normal. Left circumflex artery showed evidence of mild atherosclerotic plaque. No significant stenosis. Left ventricular angiogram showed normal left ventricular wall motion, ejection fraction of 65%. Hemodynamics: Left ventricular pressure is 105/6. EDP is 10. Aortic pressure 105/70. No gradient across the aortic valve. SUMMARY OF FINDINGS: 1. Mild atherosclerotic plaque involving RCA and left anterior descending artery. 2. Normal nonobstructive epicardial coronary arteries. 3. Normal left ventricular function, ejection fraction is 65% to 70%. RECOMMENDATIONS: The patient is reassured about absence of significant obstructive coronary artery disease. She might have had a coronary spasm or other reasons for chest pain. Prognosis is excellent. The patient can be discharged home the same day if the patient had no further issues following the procedure. cc: MD Lona Bansal MD DT: 08:17:05 TT: 09:10:00 Ref: [id number] - TID: [id number]
== END 2024-02-12 19:21 | disposition home or self-care (01) | DRG 282 ==
LOC: SERX 09:06 → SERHOLD 10:26 → S3NX 16:50 → SERHOLD 02-13 06:05 → S3NX 02-13 06:07
PROVIDERS: Emergency Medicine; Internal Medicine Cardiovascular Disease; Physician Assistant; Student in an Organized Health Care Education/Training Program; Admitting Provider Student in an Organized Health Care Education/Training Program; Emergency Provider Emergency Medicine; PCP Family Medicine; Visit Provider Student in an Organized Health Care Education/Training Program
PROC: 4A023N7 Measurement of Cardiac Sampling and Pressure, Left Heart, Percutaneous Approach (ICD-10-PCS; principal; 2024-02-12 14:00)
DX: I21.4 Non-ST elevation (NSTEMI) myocardial infarction (principal); I10 Essential (primary) hypertension; I48.0 Paroxysmal atrial fibrillation; I25.10 Atherosclerotic heart disease of native coronary artery without angina pectoris; E03.9 Hypothyroidism, unspecified; T44.7X6A Underdosing of beta-adrenoreceptor antagonists, initial encounter; Z91.128 Patient's intentional underdosing of medication regimen for other reason
CPT/HCPCS: 36415; 71045; 80053; 80061; 80307; 81001; 83036; 83690; 83735; 84100; 84443; 84484; 85025; 85610; 85730; 93005; 93225; 93306; 94640; 99152; 99285; A4649; C1769; C1887; C1894; G0378; J0171; J0461; J1643; J1644; J2250; J2310; J2371; J3010; J3490; J7040; Q9967; A9270; J2305